=== PATIENT | female | born 1955 | race Caucasian/White ===

== ENCOUNTER → 2016-09-23 | Outpatient (CLI) | payer OTHER ==
[~2016-09-23] MED LIST: ABAC1TAB12 PO; LEVO500T72 PO
--- NOTE | 2016-09-23 18:42 | RADRPT ---
PROCEDURE: CT Chest. CLINICAL INDICATION: Chest pain and possible lung abscess TECHNIQUE: CT scan of the chest without contrast was performed on the [employer] CT scanner at [facility]. Sagittal and coronal reformatted images were obtained from the axial [facility] e images. The CTDIvol is 9.00 mGy and the DLP is 360.69 mGycm. One of the following 3 dose reduction techniques were used: Automated exposure control; adjustment of the mA and/or kV according to patient size; or use of iterative reconstruction technique. COMPARISON: July 06, 2016 CT chest FINDINGS: The lungs are remarkable for is stable left lower lobe superior segment cavitary lesion measuring 15 mm AP by 11 mm transverse dimensions. This is unchanged from prior CT. No other infiltrates, nodul es or masses are present. No pleural effusions or pneumothorax is present. The mediastinum is unremarkable without evidence for mass or lymphadenopathy. Small hiatal hernia is present. The vascular structures of the mediastinum are normal in course and caliber. The aorta an d heart size are normal. The visualized liver, spleen, pancreas, bilateral adrenal glands, and imaged portions of the kidneys are normal. The imaged portions of the thoracic spine demonstrate mild dextroscoliosis and thoraci c spondylosis. The axillary regions, subpectoral regions, and supraclavicular regions are all unrem arkable. IMPRESSION: 1. No significant interval change in the superior segment left lower lobe cavitary lesion when comp ared with prior CT dated July 06, 2016. 2. No evidence for pathologic lymphadenopathy, pneumothorax or effusions. A returned call request was made to answering service for Dr. ERLINDA Mg at 09/23/2016 6:37:47 PM following the completion of the examination by the undersigned. RPTAT: HDC .Kinsey Valencia MD, MD Date Time Electronically viewed and signed by .Kinsey Valencia MD, MD on 09/23/2016 18:42 .C/
== END | disposition home or self-care (01) ==
LOC: C/S 10:55
PROVIDERS: ATTEND Internal Medicine Infectious Disease
DX: R07.9 Chest pain, unspecified (principal)
CPT/HCPCS: 71250